=== PATIENT | female | born 1960 | race Caucasian/White ===

== ENCOUNTER 2018-02-18 05:13 | Inpatient (IN) ==
[2018-02-12 15:25] LABS: Basophils # (Auto) 0 K/mcL (0.0-0.3); Basophils % (Auto) 0.7 % (0.0-2.0); Eosinophils # (Auto) 0.1 K/mcL (0.0-0.7); Eosinophils % (Auto) 0.8 % (0.0-7.0); Granulocytes % (Auto) 56.6 % (38.0-78.0); Lymphocytes # (Auto) 2.1 K/mcL (1.5-4.8); Lymphocytes % (Auto) 33.3 % (15.5-49.0); Mean Corpuscular HGB Conc 33.7 g/dL (31.0-36.0); Monocytes # (Auto) 0.5 K/mcL (0.1-0.9); Monocytes % (Auto) 8.6 % (1.0-12.0); Platelet Count 246 K/mcL (140-440); RBC 4.24 M/mcL (4.00-5.20); Red Cell Distribution Width 16.6 % (11.5-14.5)
[2018-02-12 15:38] LABS: Blood Urea Nitrogen 12 mg/dl (6-20)
[2018-02-12 16:29] LABS: Appearance,Urine CLEAR; Bilirubin,Urine NEG (NEG); Color,Urine YELLOW; Glucose,Urine (UA) NEGATIVE (NEG); Leukocyte Esterase,Urine NEG /uL (NEG); Protein,Urine NEG (NEG); Specific Gravity,Urine 1.008 (1.000-1.035); Urine Blood NEG mg/dL (<0.03); Urobilinogen,Urine NEG (NEG)
[2018-02-18] MEDS ORDERED: ACETAMINOPHEN 500 MG TABLET PO SCH (07:00)
[2018-02-18] MEDS ORDERED: PREGABALIN 75 MG CAPSULE PO SCH (07:00)
[2018-02-18] MEDS ORDERED: CELECOXIB 200 MG CAPSULE PO SCH (07:00)
[2018-02-18] MEDS ORDERED: CLINDAMYCIN 600 MG in DEXTROSE 5% IN WATER 50 ML IV SCH (07:00)
[2018-02-18] MEDS ORDERED: GLYCOPYRROLATE 0.2 MG/ML VIAL IV ONE (07:35)
[2018-02-18] MEDS ORDERED: PROPOFOL 200 MG/20 ML VIAL IV ONE (07:35)
[2018-02-18] MEDS ORDERED: DEXAMETHASONE 10 MG/ML VIAL IV ONE (07:35)
[2018-02-18] MEDS ORDERED: TRANEXAMIC ACID 1,000 MG/10 ML VIAL IV ONE (07:35)
[2018-02-18] MEDS ORDERED: PHENYLEPHRINE 10 MG/ML VIAL IV ONE (07:35)
[2018-02-18] MEDS ORDERED: PROMETHAZINE 12.5 MG SUPP.RECT PR ONE (07:35)
[2018-02-18] MEDS ORDERED: KETAMINE 100 MG/ML ML IV ONE (07:35)
[2018-02-18] MEDS ORDERED: fentaNYL 100 MCG/2 ML VIAL IV ONE (07:35)
[2018-02-18] MEDS ORDERED: SUCCINYLCHOLINE 20 MG/ML ML IV ONE (07:35)
[2018-02-18] MEDS ORDERED: ROPIVACAINE HCL/PF 30 ML VIAL IJ ONE (07:35)
[2018-02-18] MEDS ORDERED: ONDANSETRON 4 MG/2 ML VIAL IV ONE (07:35)
[2018-02-18] MEDS ORDERED: MIDAZOLAM 2 MG/2 ML VIAL IV ONE (07:35)
[2018-02-18] MEDS ORDERED: LIDOCAINE HCL/PF 100 MG/5 ML SYRINGE IV ONE (07:35)
[2018-02-18] MEDS ORDERED: GENTAMICIN SULFATE 800 MG/20 ML VIAL IR ONE (08:09)
[2018-02-18] MEDS ORDERED: IPRATROPIUM/ALBUTEROL 3 ML AMPUL.NEB NEB PRN (08:59)
[2018-02-18] MEDS ORDERED: fentaNYL 100 MCG/2 ML VIAL IV PRN (08:59)
[2018-02-18] MEDS ORDERED: METOCLOPRAMIDE 10 MG/2 ML VIAL IV PRN (08:59)
[2018-02-18] MEDS ORDERED: MEPERIDINE 25 MG/ML SYRINGE IV PRN (08:59)
[2018-02-18] MEDS ORDERED: ONDANSETRON 4 MG/2 ML VIAL IV PRN (08:59)
[2018-02-18] MEDS ORDERED: METHOCARBAMOL 1,000 MG/10 ML VIAL IV PRN (08:59)
[2018-02-18] MEDS ORDERED: PROMETHAZINE 25 MG/ML VIAL IV PRN (08:59)
[2018-02-18] MEDS ORDERED: LACTATED RINGERS 1,000 ML IV SCH (09:00)
[2018-02-18] MEDS ORDERED: FLEETS ADULT ENEMA PR PRN (09:01)
[2018-02-18] MEDS ORDERED: BISACODYL 10 MG SUPP.RECT PR PRN (09:01)
[2018-02-18] MEDS ORDERED: MAGNESIUM HYDROXIDE 30 ML ORAL.SUSP PO PRN (09:01)
[2018-02-18] MEDS ORDERED: ACETAMINOPHEN 325 MG TABLET PO PRN (09:01)
[2018-02-18] MEDS ORDERED: POLYETHYLENE GLYCOL 3350 17 GM PACKET PO PRN (09:01)
[2018-02-18] MEDS ORDERED: BENZOCAINE/MENTHOL 1 LOZENGE PO PRN (09:01)
[2018-02-18] MEDS ORDERED: TRANEXAMIC ACID 1,000 MG/10 ML VIAL IV SCH (09:01)
--- NOTE | 2018-02-18 09:01 | Brief Operative Note ---
Date of procedure: 02/18/18 Pre-op diagnosis: right shoulder rca and bicep tendon tear Post-op diagnosis: same Procedure: Right shoulder reverse tsa and bicep tenodesis Grafts/Implants: Yes Anesthesia: GETA Complications: none Surgeon: Cristino March Children Teacher: Sher Lu Estimated blood loss (cc): 54 Specimens Removed/Pathology: none sent Condition: stable Disposition: PACU
[2018-02-18] MEDS ORDERED: MAGNESIUM OXIDE 400 MG TABLET PO PRN (09:06)
--- NOTE | 2018-02-18 09:36 | Operative Note ---
DATE OF OPERATION: 02/18/2018 PREOPERATIVE DIAGNOSES: Right shoulder rotator cuff tendinopathy, biceps tendinopathy and severe degenerative arthritis. POSTOPERATIVE DIAGNOSES: Right shoulder rotator cuff tendinopathy, biceps tendinopathy and severe degenerative arthritis. PROCEDURE: Right reverse total shoulder with a biceps tenodesis. SURGEON: Cristino March MD SNAP ATTACHER: Sher Lu PA-C. ANESTHESIA: Dr. Vargas with General LMA anesthesia. BLOOD LOSS: About 54 mL COMPLICATIONS: None. IMPLANTS PLACED: A size 10 cementless stem with a 6 mm poly, 32 mm glenosphere with 2 mm of offset and a metaglene with 4 screws, central screw being a 32 mm, 6.5. The peripheral screws were 20, 32 and 32, all of which had good purchase. Bone quality was good. DESCRIPTION OF PROCEDURE: The patient was brought to the operating room and put to sleep with general LMA anesthesia. Once asleep, the patient had the right shoulder sterilely prepped and draped in the usual sterile fashion. Timeout was performed. We confirmed this was the operative site. Once done, we then placed Ioban over the skin and placed a deltopectoral approach after receiving tranexamic acid and preoperative antibiotics. Once done, we then exposed the anterior joint. We released the subscap and identified the biceps tendon which was within the groove. This was identified and placed underneath the pectoralis major and we roughened the bone and then a figure-of-8 stitch x2 into the pectoralis major and in the bicipital groove. We repaired the biceps tendon with a #2 FiberWire. Once done, we then proceeded with subluxing the humeral head anteriorly, releasing the capsule inferiorly. Once this was done, we then removed spurs and made our bony cut at 20 degrees of retroversion with our guide. Once the ball was removed we subluxed the head posteriorly using a protective covering for the humeral head. This was retracted inferiorly and posteriorly with a retractor. Once we did this, we exposed the joint and performed a 360 degree capsular release around the glenoid and identified the biceps tendon remnant. This was removed as well as the labral tissue around the edge. We placed the pin centrally with 10 degrees of inclination. Once this was done, we then reamed with a 32 reamer. Her glenoid was found to be very small and we placed a metaglene with a central screw 32 mm. The peripheral screws were 32, 32 and 20, all of which gave excellent purchase. Once done, we then placed a glenosphere which was a 32 mm glenosphere with 2 mm of offset. Once done, we then tapped this into place and locked it on to the metaglene and then we prepared the humeral side. This was broached up to the size 10. We trialed the size 10 with a 4 poly. This seemed to be too loose. A 6 poly was placed and this was the most appropriate tension giving 1 mm of play with shuck test. We irrigated thoroughly. We then cemented a small portion of the distal stem into place because of the bone quality and this was placed distally. The cementless stem was placed in the bone so it would have good bony ingrowth for longevity. This was tapped into place. A 6 mm poly was then inserted and after this had dried, we then reduced the humeral head, took the shoulder through range of motion, had excellent stability in all planes. We irrigated thoroughly. We then repaired any soft tissues or any bleeding, thoroughly irrigated and closed the interval with 2-0 Vicryl. Once done, we then placed a sterile bandage after closing the skin with 2-0 Vicryl and adhesive closure. A DonJoy sling was fitted and given to the patient at the end of the case. RBH:rafael Job ID: [id number] Doc ID: [id number] Cristino March MD
--- NOTE | 2018-02-18 09:55 | XRay Report ---
CLINICAL INFORMATION: Post-OP Total Shoulder COMPARISON: None. FINDINGS: Right total shoulder prosthesis is anatomically aligned. No osseous abnormality. soft tissue swelling as expected IMPRESSION: Negative Interpreted and Authenticated by: Figueroa Collins 02/18/18
[2018-02-18] MEDS: HYDROmorphone 2 MG/ML VIAL IV PRN ×2 (10:45→15:51)
[2018-02-18] MEDS: oxyCODONE/APAP 5/325MG TABLET PO PRN ×3 (11:27→23:05)
[2018-02-18] MEDS: 0.45 % SODIUM CHLORIDE 1,000 ML IV SCH ×2 (11:28→22:56)
[2018-02-18] MEDS: KETOROLAC 15 MG/ML VIAL IV PRN (11:32)
[2018-02-18] MEDS: BACLOFEN 10 MG TABLET PO SCH ×2 (11:32→19:54)
[2018-02-18] MEDS: 0.9 % SODIUM CHLORIDE 10 ML SYRINGE IV SCH ×2 (13:31→23:05)
[2018-02-18] MEDS: CLINDAMYCIN 600 MG in DEXTROSE 5% IN WATER 50 ML IV SCH ×2 (15:41→23:04)
[2018-02-18] MEDS: ONDANSETRON 4 MG/2 ML VIAL IV PRN (17:55)
[2018-02-18] MEDS ORDERED: BACLOFEN 10 MG TABLET PO SCH (18:00)
[2018-02-18] MEDS: PREGABALIN 150 MG CAPSULE PO SCH (19:53)
[2018-02-18] MEDS: HYDROXYCHLOROQUINE 200 MG TABLET PO SCH (19:53)
[2018-02-18] MEDS: valACYclovir 500 MG TABLET PO SCH (19:54)
[2018-02-18] MEDS: DOCUSATE SODIUM 100 MG CAPSULE PO SCH (19:55)
[2018-02-18] MEDS ORDERED: ETODOLAC 500 MG PO SCH (21:00)
[2018-02-18] MEDS ORDERED: TEMAZEPAM 30 MG PO SCH (21:00)
[2018-02-18] MEDS ORDERED: SENNOSIDES 1 TABLET PO SCH (21:00)
[2018-02-18] MEDS ORDERED: LORazepam 1 MG TABLET PO SCH (21:00)
[2018-02-18] MEDS ORDERED: TEMAZEPAM 15 MG CAPSULE PO PRN (21:00)
[2018-02-19] MEDS: KETOROLAC 15 MG/ML VIAL IV PRN ×3 (00:14→12:36)
[2018-02-19] MEDS: ONDANSETRON 4 MG/2 ML VIAL IV PRN (00:14)
[2018-02-19] MEDS: oxyCODONE/APAP 5/325MG TABLET PO PRN ×4 (03:58→14:00)
[2018-02-19] MEDS: 0.45 % SODIUM CHLORIDE 1,000 ML IV SCH (05:02)
[2018-02-19] MEDS: 0.9 % SODIUM CHLORIDE 10 ML SYRINGE IV SCH ×2 (06:06→14:01)
[2018-02-19] MEDS ORDERED: LEVOTHYROXINE 100 MCG TABLET PO SCH (07:30)
--- NOTE | 2018-02-19 07:45 | Orthopedic Progress Note ---
Subjective Patient information: Note initiated : 02/19/18 at 7:44 am Service Date, if different from initiated Date: [] Patient: Rita Odell 57 y/o F admitted on 02/18/18 for Right Reverse Total Shoulder with Bicep Tendon . Chief Complaint: [Pt is stable this morning on post operative day 1 without any significant concerns or complaints. Patients vital signs have remained stable. Patients dressing is dry and is grossly intact from a neurovascular and motor standpoint. Patients 10 point ROS is otherwise negative. ] Objective Vital signs: Vital Signs Temp Pulse Resp BP BP Pulse Ox 02/19/18 06:57 97.1 F 92 H 20 135/69 94 02/19/18 04:30 98.6 F 74 20 121/64 99 02/18/18 23:03 98.2 F 79 20 111/62 99 02/18/18 20:00 98.2 F 77 20 113/62 98 02/18/18 16:05 97.8 F 80 16 116/82 97 02/18/18 13:32 86 123/74 96 02/18/18 12:32 86 126/74 100 02/18/18 12:02 81 114/68 100 02/18/18 11:32 83 114/68 100 02/18/18 11:17 82 133/66 100 02/18/18 11:03 89 131/74 95 02/18/18 10:47 87 123/70 100 02/18/18 10:32 98.5 F 86 139/77 02/18/18 10:19 97.6 F 78 14 136/54 100 02/18/18 10:05 82 16 129/69 100 02/18/18 09:50 68 12 132/61 100 02/18/18 09:35 97.0 F 68 17 125/63 100 02/18/18 09:30 65 15 120/74 100 02/18/18 09:25 68 20 111/62 99 02/18/18 09:20 96.5 F L 74 17 105/55 96 Intake and Output 02/18/18 02/19/18 02/19/18 21:59 05:59 13:59 Intake Total 1894 / 5314 320 / 5314 Output Total 150 / 2285 1500 / 2285 800 / 800 Balance 1744 / 3029 -1180 / 3029 -800 / -800 Intake: IV 54 / 54 Cleocin 600 mg In Dextrose 5% 54 / 54 in Water 50 ml @ 100 mls/hr IV Q[facility] Rx#:[id number] Oral 1840 / 3760 320 / 3760 Output: Void Amount 150 / 2150 1500 / 2150 800 / 800 Other: Meal Dinner Nourishment/Supplement Percent of Meal Consumed 50% Feeding Ability Independent Assist with Tray Set Up Urine Appearance Clear Clear Urine Color Bright Yellow Bright Yellow Urine Odor Normal Normal Weight 131 lb Intake & Output: Intake & Output 02/18/18 02/19/18 02/19/18 21:59 05:59 13:59 Intake Total 1894 / 5314 320 / 5314 Output Total 150 / 2285 1500 / 2285 800 / 800 Balance 1744 / 3029 -1180 / 3029 -800 / -800 Weight 131 lb Intake: IV 54 / 54 Cleocin 600 mg In Dextrose 5% 54 / 54 in Water 50 ml @ 100 mls/hr IV Q8H [facility] Rx#:[id number] Oral 1840 / 3760 320 / 3760 Output: Void Amount 150 / 2150 1500 / 2150 800 / 800 Other: Meal Dinner Nourishment/Supplement Percent of Meal Consumed 50% Feeding Ability Independent Assist with Tray Set Up Urine Appearance Clear Clear Urine Color Bright Yellow Bright Yellow Urine Odor Normal Normal Incision: Yes healing Incision clean and dry: Yes Dressing: Yes clean, Yes dry Weight bearing status: partial Neurological exam IM: Yes motor sensory intact, Yes neurovascular intact Extremities exam IM: Yes neurovascular intact - Labs CBC & BMP: 02/12/18 14:05 02/12/18 14:05 Labs: Orthopedic Labs 02/12/18 14:05 PT 13.5 INR 1.0 APTT 31 02/12/18 14:05 Hgb 13.6 Hct 40.3 Assessment and Plan (1) History of reverse total replacement of right shoulder joint The patient has been educated regarding dressing care, Physical Therapy recommendations, home exercises, restrictions, and follow up appointments. The patient has had all necessary DME prescribed. The patient has remained relatively stable during their hospital course. Leave Dermabond patch intact until followup Status: Acute
--- NOTE | 2018-02-19 07:47 | Discharge Summary ---
Ortho Discharge - TSA - Patient Instructions Diet: Regular Diet Activity: activity as tolerated, weight bearing as tolerated Total Shoulder Protocol: Leave immobilizer in place except for bathing and ROM. Abduction pillow. Continue to wear sling until seen by physician. Codman Pendulum : These exercises use momentum produced by your body to move your shoulder joint. Bend your knees and shift your weight to your front leg, then back, allowing your arm to swing in the same directions. Using the same technique, alternately shift your weight between your right and left legs, allowing your arm to swing from side to side. These exercises are also performed in counterclockwise and clockwise circular motions. Typically these exercises are performed several times per day, for a set number repetitions or minutes, such as 20 times in a row or 5 minutes at a time. Dressing Care: May shower in 2 days - Problem Maintenance (1) History of reverse total replacement of right shoulder joint Status: Acute - Follow Up Plan Follow Up Appointments: Sher Lu PA-C [Physician Jig And Fixture Maker] - 03/05/18 10:40 am Disposition: Home, Self-Care Prognosis: Good Rehab Potential: Good I certify that the patient requires SNF services: No Overall status at discharge: patient is progressing back to baseline - Orders For Discharge Prescriptions: Docusate Sodium [Colace] 100 mg PO BID #60 capsule oxyCODONE/APAP [Percocet 5-325 mg] 1 - 2 tab PO Q4HP PRN #75 tab PRN Reason: Pain Level 3-6
[2018-02-19] MEDS ORDERED: BACLOFEN 10 MG TABLET PO SCH (09:00)
[2018-02-19] MEDS ORDERED: MULTIVIT,THER IRON,CA,FA & MIN 1 TABLET PO SCH (09:00)
[2018-02-19] MEDS ORDERED: DULoxetine 30 MG CAPSULE PO SCH (09:00)
[2018-02-19] MEDS ORDERED: LYSINE 1000 MG PO SCH (09:00)
[2018-02-19] MEDS ORDERED: VITAMIN D3 1,000 UNIT TABLET PO SCH (09:00)
[2018-02-19] MEDS: HYDROXYCHLOROQUINE 200 MG TABLET PO SCH (09:41)
[2018-02-19] MEDS: PREGABALIN 150 MG CAPSULE PO SCH (09:41)
[2018-02-19] MEDS: DOCUSATE SODIUM 100 MG CAPSULE PO SCH (09:41)
[2018-02-19] MEDS: valACYclovir 500 MG TABLET PO SCH (09:43)
[2018-02-19] MEDS: BACLOFEN 10 MG TABLET PO SCH ×2 (09:48→12:36)
[2018-02-19] MEDS ORDERED: LIDOCAINE PATCH TOPICAL ONE (11:21)
== END 2018-02-19 14:30 | disposition home or self-care (01) | DRG 483 ==
LOC: MEDSUR 05:13
PROVIDERS: ADMIT Orthopaedic Surgery; ATTEND Orthopaedic Surgery